=== PATIENT | male | born 1965 | race Caucasian/White ===

== ENCOUNTER 2020-10-06 12:38 | Inpatient (IN) | payer BC, OTHER ==
[2020-10-06 13:35] LABS: Basophils % (A) 0 %; Eosinophils # (A) 0.2 k/uL (0-0.7); Eosinophils % (A) 2 %; HGB 15.7 gm/dL (13.0-17.5); Lymphocytes # (A) 1.6 k/uL (1.0-4.8); Lymphocytes % (A) 20 %; MCHC 35.6 g/dL (31.0-37.0); MCV 92.8 fL (80.0-100.0); Mean Platelet Volume 7.2; Monocytes # (A) 0.3 k/uL (0-1.0); Monocytes % (A) 4 %; Neutrophils % (A) 73 %; Platelet Count 277 k/uL (150-450); RBC 4.74 m/uL (4.30-5.90); RDW 13.1 % (11.5-15.5); WBC 8.1 k/uL (3.8-10.6)
--- NOTE | 2020-10-06 13:36 | ED ---
Chest Pain HPI - General Chief Complaint: Chest Pain Stated Complaint: pain between shoulder blades Source: patient Mode of arrival: ambulatory Limitations: no limitations - History of Present Illness Initial Comments: 55-year-old male with no reported past medical history who presents emergency room with reported back pain. Patient reports to an intrascapular back pain with associated nausea and diaphoresis. This is the second episode of the patient has had this week. Reports that it occurs with exertion. Makes him feel short of breath. Denies any vomiting. No pain reproduced upon palpation. Patient took an aspirin last night which seemed to help his symptoms. He denies any fevers chills or cough. No history of DVT or PE. No calf pain or swelling. 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 Patient is not any blood thinners. No history of coronary disease. Denies history of stress test or echo. No fevers, chills or cough. No other alleviating, presentation modifying factors - Related Data Home Medications Medication Instructions Recorded Confirmed No Known Home Medications 10/06/20 10/06/20 Allergies Allergy/AdvReac Type Severity Reaction Status Date / Time latex Allergy Unknown Rash/Hives Verified 10/06/20 14:36 Review of Systems ROS Statement: Those systems with pertinent positive or pertinent negative responses have been documented in the HPI. ROS Other: All systems not noted in ROS Statement are negative. EKG Findings - EKG Comments: EKG Findings:: EKG demonstrates normal sinus rhythm with a ventricular rate of 75. Pr interval 160. QRS 88. QTC of 419. Q wave in lead 3. No acute ST segment elevations or depressions Past Medical History Past Medical History: Sleep Apnea/CPAP/BIPAP Additional Past Medical History / Comment(s): C-PAP MACHINE, possible diverticulosis History of Any Multi-Drug Resistant Organisms: None Reported Additional Past Surgical History / Comment(s): COLONOSCOPY Past Anesthesia/Blood Transfusion Reactions: No Reported Reaction, Motion Sickness Past Psychological History: No Psychological Hx Reported Smoking Status: Never smoker Past Alcohol Use History: Occasional Past Drug Use History: None Reported - Past Family History Father Family Medical History: Cancer Additional Family Medical History / Comment(s): BLADDER CA General Exam Limitations: no limitations General appearance: alert, in no apparent distress Head exam: Present: atraumatic, normocephalic, normal inspection Eye exam: Present: normal appearance, PERRL, EOMI. Absent: scleral icterus, conjunctival injection, periorbital swelling ENT exam: Present: normal exam, mucous membranes moist Neck exam: Present: normal inspection. Absent: tenderness, meningismus, lymphadenopathy Respiratory exam: Present: normal lung sounds bilaterally. Absent: respiratory distress, wheezes, rales, rhonchi, stridor Cardiovascular Exam: Present: regular rate, normal rhythm, normal heart sounds. Absent: systolic murmur, diastolic murmur, rubs, gallop, clicks GI/Abdominal exam: Present: soft, normal bowel sounds. Absent: distended, tenderness, guarding, rebound, rigid Extremities exam: Present: normal inspection, full ROM, normal capillary refill. Absent: tenderness, pedal edema, joint swelling, calf tenderness Back exam: Present: normal inspection Neurological exam: Present: alert, oriented X3, CN II-XII intact Psychiatric exam: Present: normal affect, normal mood Skin exam: Present: warm, dry, intact, normal color. Absent: rash Course Vital Signs 10/06/20 10/06/20 10/06/20 12:47 13:30 14:00 Temperature 98.6 F Pulse Rate 77 75 77 Respiratory 18 18 16 Rate Blood Pressure 135/91 127/82 123/82 O2 Sat by Pulse 99 99 98 Oximetry 10/06/20 10/06/20 10/06/20 14:30 15:00 16:00 Temperature Pulse Rate 74 71 76 Respiratory 161 H 18 18 Rate Blood Pressure 116/76 117/82 118/81 O2 Sat by Pulse 99 99 99 Oximetry Chest Pain MDM - MDM Upon arrival patient placed into room 21. There are history and physical exam is performed. EKG was performed which demonstrates no acute ST segment elevation. Laboratory studies are conducted which demonstrated a troponin of 0.41. A CT was performed to rule out dissection. CT is negative. Chest x-ray demonstrates no acute intrathoracic process. Patient is heparinized. Spoke with Dr. Posada in regards to the patient's symptoms. Patient will be made nothing by mouth after midnight. 325 mg chewable aspirin provided. Patient remained in stable condition awaiting a bed on the floor Disposition Clinical Impression: Chest pain, NSTEMI (non-ST elevated myocardial infarction) Disposition: ADMITTED IP TO THIS HOSP Condition: Serious Is patient prescribed a controlled substance at d/c from ED?: No Decision to Admit Reason: Admit from EC Decision Date: 10/06/20 Decision Time: 15:11
[2020-10-06 13:42] LABS: ALT 16 U/L (4-49); AST 28 U/L (17-59); African American GFR (CKD) >90 (>60 ml/min/1.73 sqM); Albumin 4.6 g/dL (3.5-5.0); Alkaline Phosphatase 82 U/L (38-126); Anion Gap 9 mmol/L; Blood Urea Nitrogen 14 mg/dL (9-20); Calcium 10.2 mg/dL (8.4-10.2); Carbon Dioxide 24 mmol/L (22-30); Chloride 108 mmol/L (98-107); Glucose 105 mg/dL (74-99); Lipase 90 U/L (23-300); Non-African American GFR(CKD) 90 (>60 ml/min/1.73 sqM); Sodium 141 mmol/L (137-145); Total Bilirubin 0.9 mg/dL (0.2-1.3); Total Protein 7.1 g/dL (6.3-8.2)
--- NOTE | 2020-10-06 13:44 | XR ---
EXAMINATION TYPE: XR chest 2V DATE OF EXAM: 10/06/2020 COMPARISON: NONE HISTORY: Chest pain TECHNIQUE: Frontal and lateral views of the chest are obtained. FINDINGS: There is no focal air space opacity, pleural effusion, or pneumothorax seen. The cardiac silhouette size is within normal limits. The osseous structures are intact. IMPRESSION: No acute cardiopulmonary process.
[2020-10-06 13:47] LABS: D-Dimer 0.23 mg/L FEU (<0.60); Partial Thromboplastin Time 25.7 sec (22.0-30.0); Prothrombin Time 10.4 sec (9.0-12.0)
[2020-10-06 13:59] LABS: Potassium 4.5 mmol/L (3.5-5.1)
[2020-10-06] MEDS ORDERED: ASPIRIN 81 MG PO STA (14:36)
[2020-10-06] MEDS ORDERED: HEPARIN SODIUM 1,000 UN/ML (10ML VL) IV PRN (14:36)
[2020-10-06] MEDS ORDERED: HEPARIN SODIUM 1,000 UN/ML (10ML VL) IV ONE (14:36)
[2020-10-06] MEDS ORDERED: RX INFO: IV CONTRAST WAS GIVEN 1 EACH MISC MISCELLANE PRN (14:47)
[2020-10-06] MEDS ORDERED: NALOXONE 0.4 MG/ML 1 ML VIAL IV PRN (15:11)
--- NOTE | 2020-10-06 15:55 | CT ---
EXAMINATION TYPE: CT chest w con DATE OF EXAM: 10/06/2020 COMPARISON: HISTORY: pain between shoulder blades CT DLP: 562.1 mGycm Automated exposure control for dose reduction was used. TECHNIQUE: CT scan of the chest is performed with IV Contrast, patient injected with 100 mL of Isovue 300. MIP Images are created on CT scanner and reviewed. 3D reconstructed images are created on an independent workstation and reviewed. FINDINGS: LUNGS: Nodular apical thickening on the left measuring 7 mm is nonspecific. MEDIASTINUM: There are no greater than 1 cm hilar or mediastinal lymph nodes. No pericardial effusi on is seen. Aorta of normal caliber with normal enhancement. Aortic root limited due to artifact. Co rrelate clinically. OTHER: There is a small hiatal hernia. There is a sclerosis of a mid right rib which is nonspecific could be correlated with bone scan. IMPRESSION: 1. No acute intrathoracic process.
[2020-10-06] MEDS: HEPARIN SOD,PORK IN 0.45% NACL 25,000 UNIT in 0.45% NACL 1 250ML.BAG IV SCH (16:22)
[2020-10-06] MEDS: ATORVASTATIN 80 MG TAB PO SCH (21:09)
[2020-10-06] MEDS: METOPROLOL TARTRATE 12.5 MG TAB PO SCH (21:12)
--- NOTE | 2020-10-06 22:54 | HP ---
HISTORY AND PHYSICAL DATE OF SERVICE: 10/06/2020 CHIEF COMPLAINT: Chest pain. HISTORY OF PRESENT ILLNESS: This 55-year-old gentleman with a past medical history of sleep apnea, history of diverticulosis, history of colonoscopy, being followed by Dr. Thomas in the outpatient setting was complaining of back pain. The patient felt pain in the interscapular area last night associated with nausea and profuse diaphoresis. The patient also had similar pain type of pain a few days ago on exertion, along with some shortness of breath and the patient actually ( ) Because of the pain last night, the patient came to [facility] and admitted for evaluation and treatment. There is no history of fever, rigors, chills, headache, loss consultations at this time. In the troponin is found to be 0.410 and 0.512 indicating acute hxw-OM-tadgywk-elevation myocardial infarction. The EKG in the ER showed nonspecific ST-T changes at this time and some small Q-waves in leads 3 and AVF. There is no history of fever, rigors, chills at this time. PAST MEDICAL HISTORY: History of sleep apnea, history of colonoscopy. MEDICATIONS: None. ALLERGIES: LATEX. FAMILY HISTORY: History of bladder cancer in the family. SOCIAL HISTORY: No history of smoking. No history alcohol. 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 CARDIOVASCULAR: As mentioned. RESPIRATORY: As mentioned. GI: No nausea. : No dysuria. NERVOUS SYSTEM: No numbness, weakness. ALLERGY: No asthma or hayfever. MUSCULOSKELETAL: As mentioned. HEMATOLOGY: Anemia. ENDOCRINE: No history of diabetes or hypothyroidism. CONSTITUTIONAL: Negative. RHEUMATOLOGY: Negative. PSYCHIATRIC: As mentioned. PHYSICAL EXAMINATION: Alert oriented pulse 76, blood pressure 119/81, respiration 18, temperature 99 and normal, pulse ox 98% on room air. HEART: S1, S2 muffled. RESPIRATORY SYSTEM: Breath sounds diminished at the bases. No rhonchi. No crackles. ABDOMEN: Soft, nontender. No mass palpable. LEGS: No edema, no swelling. NERVOUS SYSTEM: As mentioned earlier. Moves all 4 limbs. Nonfocal motor-sensory. LYMPHATICS: No lymph nodes. SKIN: No rash. JOINTS: No active deforming arthropathy. LABS: CBC within normal limits. Sodium 141, potassium 4.5. Troponin 0.410 and 0.512. COVID- 19 is negative. ASSESSMENT: 1. back pain, intrascapular pain, for evaluation possible acute tzh-SD-ypkwllw- elevation myocardial infarction. 2. Troponin 0.512. 3. History of sleep apnea. 4. History of diverticulosis. 5. History of colonoscopy. 6. Obesity with body mass 30.5. 7. FULL CODE. RECOMMENDATION AND DISCUSSION: This 55-year-old gentleman who presented with multiple complex medical issues, we will monitor the patient closely, continue the current medications. Angina protocol, acute coronary syndrome protocol. Otherwise, IV heparin. Cardiology consultation, possible cardiac cath per Cardiology. The prognosis guarded. Antiplatelet agents. Beta blockers. See orders for details. Guarded prognosis. Further recommendations to follow. Recommend Lipitor also. MMODL / IJN: [id number] / MTDD
[2020-10-07 08:13] LABS: Basophils % (A) 1 %; Eosinophils # (A) 0.1 k/uL (0-0.7); Eosinophils % (A) 1 %; HCT 43.3 % (39.0-53.0); HGB 15.2 gm/dL (13.0-17.5); Lymphocytes % (A) 29 %; MCH 32.9 pg (25.0-35.0); MCHC 35.1 g/dL (31.0-37.0); MCV 93.7 fL (80.0-100.0); Mean Platelet Volume 7.2; Monocytes # (A) 0.4 k/uL (0-1.0); Monocytes % (A) 5 %; Neutrophils # (A) 4.3 k/uL (1.3-7.7); Neutrophils % (A) 63 %; Platelet Count 240 k/uL (150-450); RBC 4.62 m/uL (4.30-5.90); WBC 6.8 k/uL (3.8-10.6)
[2020-10-07 08:23] LABS: African American GFR (CKD) >90 (>60 ml/min/1.73 sqM); Anion Gap 7 mmol/L; Blood Urea Nitrogen 14 mg/dL (9-20); Carbon Dioxide 24 mmol/L (22-30); Chloride 109 mmol/L (98-107); Glucose 101 mg/dL (74-99); Non-African American GFR(CKD) 88 (>60 ml/min/1.73 sqM); Partial Thromboplastin Time 44.6 sec (22.0-30.0); Potassium 4.4 mmol/L (3.5-5.1); Prothrombin Time 10.6 sec (9.0-12.0); Sodium 140 mmol/L (137-145)
--- NOTE | 2020-10-07 08:40 | P.CRDCN ---
History of Present Illness Consult date: 10/07/20 History of present illness: HISTORY OF PRESENT ILLNESS: This is a 55-year-old male with no significant past medical history. 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 We have been asked to see the patient in consultation for chest pain. Patient examined at the bedside. Patient states on Friday he was running to his car after work when he noticed he was feeling short of breath and had some pain in between his shoulder blades. He also reports feeling diaphoretic and nauseated. He denied having any chest pain. He states he sat in his car for approximately 5 or 10 minutes and the symptoms subsided. He reports yesterday after eating dinner he had similar symptoms. He states over the past week he has noticed he gets these symptoms when he is exerting himself and then when he sits down his symptoms will resolve shortly after resti ng. The patient states he had a stress test approximately 20 years ago which was negative to his knowledge. Patient states he has a family history of coronary artery disease and reports his mother had multiple heart attacks, the first one being before the age of 60. EKG reveals sinus mechanism with no signs of acute ischemia Chest xray negative for acute process Laboratory data: WBC 6.8. Hemoglobin 15.2. Platelet count 240. D-dimer 0.23. Sodium 140. Potassium 4.4. BUN 14. Creatinine 0.98. Magnesium 2.0. Troponin 0.410. 0.512. 0.644. BNP 810. Current home cardiac medications include none REVIEW OF SYSTEMS: At the time of my exam: CONSTITUTIONAL: Denies fever or chills. HEENT: Denies blurred vision, vision changes, or eye pain. Denies hemoptysis CARDIOVASCULAR: Denies chest pain. Denies orthopnea. Denies PND. Denies palpitations RESPIRATORY: Denies shortness of breath. GASTROINTESTINAL: Denies abdominal pain. Denies nausea or vomiting. HEMATOLOGIC: Denies bleeding disorders. GENITOURINARY: Denies any blood in urine. SKIN: Denies pruitis. Denies rash. PHYSICAL EXAM: VITAL SIGNS: Reviewed. GENERAL: Well-developed in no acute distress. HEENT: Head is normocephalic. Pupils are equal, round. Sclerae anicteric. Mucous membranes of the mouth are moist. Neck supple. No JVD or thyromegaly LUNGS: Respirations even and unlabored. Lungs essentially clear to auscultation bilaterally. HEART: Regular rate and rhythm. S1 and S2 heard. ABDOMEN: Soft. Nondistended. Nontender. EXTREMITIES: Normal range of motion. No clubbing or cyanosis. Peripheral pulses intact. No lower extremity edema NEUROLOGIC: Awake and alert. Oriented x 3. ASSESSMENT: Non-STEMI Exertional dyspnea Family history of coronary artery disease PLAN: Obtain 2-D echo to assess cardiac structure and function Continue IV heparin Continue Lipitor. Obtain lipid panel Add aspirin 81 mg daily Possible cardiac cath today. Decision will be made when patient is evaluated by Dr. Gerard today Further recommendations pending patient course Nurse practitioner note has been reviewed by physician. Signing provider agrees with the documented findings, assessment, and plan of care. Past Medical History Past Medical History: Sleep Apnea/CPAP/BIPAP Additional Past Medical History / Comment(s): C-PAP MACHINE, possible diverticulosis History of Any Multi-Drug Resistant Organisms: None Reported Additional Past Surgical History / Comment(s): COLONOSCOPY Past Anesthesia/Blood Transfusion Reactions: No Reported Reaction, Motion Sickness Past Psychological History: No Psychological Hx Reported Smoking Status: Never smoker Past Alcohol Use History: Occasional Past Drug Use History: None Reported - Past Family History Father Family Medical History: Cancer Additional Family Medical History / Comment(s): BLADDER CA Medications and Allergies Home Medications Medication Instructions Recorded Confirmed Type No Known Home Medications 10/06/20 10/06/20 History Allergies Allergy/AdvReac Type Severity Reaction Status Date / Time latex Allergy Unknown Rash/Hives Verified 10/06/20 14:36 Physical Exam Vitals: Vital Signs Temp Pulse Pulse Resp BP BP Pulse Ox 10/07/20 04:00 86 18 108/70 96 10/07/20 00:00 72 18 119/69 99 10/06/20 21:40 98.2 F 62 18 139/88 97 10/06/20 21:17 97.8 F 91 16 131/84 98 10/06/20 20:10 97.8 F 89 16 129/83 98 10/06/20 16:00 76 18 118/81 99 10/06/20 15:00 71 18 117/82 99 10/06/20 14:30 74 161 H 116/76 99 10/06/20 14:00 77 16 123/82 98 10/06/20 13:30 75 18 127/82 99 10/06/20 12:47 98.6 F 77 18 135/91 99 Intake and Output 10/06/20 10/07/20 10/07/20 22:59 06:59 14:59 Intake Total 527.667 0 Balance 527.667 0 Intake: Intake, IV Titration 47.667 Amount Heparin Sod,Pork in 0.45% 47.667 NaCl 25,000 unit In 0.45 % NaCl 1 250ml.bag @ 10. 702 UNITS/KG/HR 10 mls/hr IV .Q24H [facility] Rx#: [id number] Oral 480 0 Other: Voiding Method Toilet Toilet # Voids 2 Weight 93.44 kg 93 kg Results 10/07/20 07:46 10/07/20 07:46 Cardiac Enzymes 10/06/20 10/06/20 10/06/20 Range/Units 13:11 13:11 16:50 AST 28 (17-59) U/L Troponin I 0.410 H* 0.512 H* (0.000-0.034) ng/mL 10/06/20 Range/Units 20:30 AST (17-59) U/L Troponin I 0.644 H* (0.000-0.034) ng/mL Coagulation 10/06/20 10/06/20 10/07/20 Range/Units 13:11 20:30 07:46 PT 10.4 10.6 (9.0-12.0) sec APTT 25.7 41.6 H 44.6 H (22.0-30.0) sec CBC 10/06/20 10/07/20 Range/Units 13:11 07:46 WBC 8.1 6.8 (3.8-10.6) k/uL RBC 4.74 4.62 (4.30-5.90) m/uL Hgb 15.7 15.2 (13.0-17.5) gm/dL Hct 44.0 43.3 (39.0-53.0) % Plt Count 277 240 (150-450) k/uL Comprehensive Metabolic Panel 10/06/20 10/07/20 Range/Units 13:11 07:46 Sodium 141 140 (137-145) mmol/L Potassium 4.5 4.4 (3.5-5.1) mmol/L Chloride 108 H 109 H (98-107) mmol/L Carbon Dioxide 24 24 (22-30) mmol/L BUN 14 14 (9-20) mg/dL Creatinine 0.96 0.98 (0.66-1.25) mg/dL Glucose 105 H 101 H (74-99) mg/dL Calcium 10.2 10.0 (8.4-10.2) mg/dL AST 28 (17-59) U/L ALT 16 (4-49) U/L Alkaline Phosphatase 82 (38-126) U/L Total Protein 7.1 (6.3-8.2) g/dL Albumin 4.6 (3.5-5.0) g/dL Current Medications Generic Name Dose Route Start Last Admin Trade Name Freq PRN Reason Stop Dose Admin Atorvastatin Calcium 80 mg 10/06/20 20:00 10/06/20 21:09 Atorvastatin 80 Mg Tab PO 80 mg DAILY DARYL Administration Heparin Sodium (Porcine) 0 unit 10/06/20 14:36 10/06/20 21:06 Heparin Sodium 1,000 Un/Ml (10ml Vl) IV 2,336 unit PER PROTOCOL PRN Administration Low PTT Protocol Heparin Sodium/Sodium Chloride 250 mls @ 10 mls/hr 10/06/20 14:45 10/06/20 21:08 25,000 unit/ Sodium Chloride IV 12.84 units/kg/hr .Q24H DARYL 12 mls/hr Titration Protocol 10.702 UNITS/KG/HR Metoprolol Tartrate 12.5 mg 10/06/20 21:00 10/06/20 21:12 Metoprolol Tartrate 12.5 Mg Tab PO 12.5 mg BID DARYL Administration Miscellaneous Information 1 each 10/06/20 14:47 Rx Info: Iv Contrast Was Given 1 Each Misc MISCELLANE 10/08/20 14:47 DAILY PRN Per Protocol Naloxone HCl 0.2 mg 10/06/20 15:11 Naloxone 0.4 Mg/Ml 1 Ml Vial IV Q2M PRN Opioid Reversal Intake and Output 10/06/20 10/07/20 10/07/20 22:59 06:59 14:59 Intake Total 527.667 0 Balance 527.667 0 Intake: Intake, IV Titration 47.667 Amount Heparin Sod,Pork in 0.45% 47.667 NaCl 25,000 unit In 0.45 % NaCl 1 250ml.bag @ 10. 702 UNITS/KG/HR 10 mls/hr IV .Q24H [facility] Rx#: [id number] Oral 480 0 Other: Voiding Method Toilet Toilet # Voids 2 Weight 93.44 kg 93 kg 10/07/20 07:46 10/07/20 07:46
[2020-10-07] MEDS ORDERED: ASPIRIN 325 MG TAB PO STA (09:38)
[2020-10-07] MEDS ORDERED: SODIUM CHLORIDE 0.9% 1,000 ML in EMPTY BAG 1 BAG IV ONE (09:38)
[2020-10-07] MEDS ORDERED: NITROGLYCERIN SL TABS 0.4 MG TAB SUBLINGUAL PRN ×2 (09:38→11:57)
[2020-10-07] MEDS ORDERED: ALPRAZolam 0.25 MG TAB PO PRN (09:38)
[2020-10-07] MEDS ORDERED: ALPRAZolam 0.5 MG TAB PO PRN (09:38)
[2020-10-07] MEDS ORDERED: ATORVASTATIN 80 MG TAB PO STA (09:38)
[2020-10-07] MEDS: ATORVASTATIN 80 MG TAB PO SCH (10:06)
[2020-10-07] MEDS: ASPIRIN 81 MG PO SCH (10:06)
[2020-10-07] MEDS: METOPROLOL TARTRATE 12.5 MG TAB PO SCH ×2 (10:24→20:17)
[2020-10-07] MEDS ORDERED: VERAPAMIL 2.5 MG/ML 2 ML AMP ONE (10:35)
[2020-10-07] MEDS ORDERED: LIDOCAINE 1% INJ 10MG/ML (20 ML MDV) ONE (10:35)
[2020-10-07] MEDS ORDERED: IV FLUID CONTINUATION 900 ML IV ONE (10:51)
[2020-10-07] MEDS: MIDAZOLAM 2 MG/2 ML VIAL IV ONE ×2 (11:07→11:32)
[2020-10-07] MEDS: fentaNYL (PF) 50 MCG/ML 2 ML AMP IV ONE ×2 (11:10→11:34)
[2020-10-07] MEDS ORDERED: fentaNYL (PF) 50 MCG/ML 2 ML AMP ONE (11:11)
[2020-10-07] MEDS ORDERED: MIDAZOLAM 2 MG/2 ML VIAL IV ONE (11:11)
[2020-10-07] MEDS ORDERED: VERAPAMIL SYRINGE (5 MG/10 ML) INTRAARTER ONE ×2 (11:14→11:16)
[2020-10-07] MEDS ORDERED: LIDOCAINE 1% INJ 10MG/ML (20 ML MDV) SQ ONE (11:14)
[2020-10-07] MEDS ORDERED: HEPARIN SODIUM 1,000 UN/ML (10ML VL) ONE (11:14)
[2020-10-07] MEDS ORDERED: fentaNYL (PF) 50 MCG/ML 2 ML AMP IV ONE (11:14)
[2020-10-07] MEDS ORDERED: PRASUGREL 10 MG TAB ONE (11:25)
[2020-10-07] MEDS ORDERED: PRASUGREL 10 MG TAB PO ONE (11:29)
[2020-10-07] MEDS: NITROGLYCERIN 1000MCG/10ML SYRINGE INTRACORON ONE ×2 (11:44→11:45)
[2020-10-07] MEDS ORDERED: IOPAMIDOL-370 125ML BTL INJ ONE (11:48)
[2020-10-07] MEDS ORDERED: RX INFO: IV CONTRAST WAS GIVEN 1 EACH MISC MISCELLANE PRN (11:57)
[2020-10-07] MEDS ORDERED: ZOLPIDEM 5 MG TAB PO PRN (11:57)
[2020-10-07] MEDS ORDERED: ATROPINE SULFATE 0.1 MG/ML 10ML SYRINGE IV PRN (11:57)
[2020-10-07] MEDS ORDERED: MAG HYDROX/AL HYDROX/SIMETH 30 ML CUP PO PRN (11:57)
[2020-10-07] MEDS ORDERED: SODIUM CHLORIDE 0.9% 1,000 ML IV SCH (12:00)
[2020-10-07 13:07] VITALS: BMI 30.2
--- NOTE | 2020-10-07 13:07 | CC ---
CARDIAC CATHETERIZATION REPORT DATE OF SERVICE: 10/07/2020 PERFORMING PHYSICIAN: Misbah Gerard MD. PROCEDURE PERFORMED: 1. Selective right and left coronary angiogram. 2. Left heart catheterization. 3. Successful stenting of the mid left anterior descending artery using 2.5 x 15 mm Xience drug-eluting stent with an excellent angiographic result and reduction of stenosis from 90% to 0%. 4. Balloon angioplasty of the second diagonal branch of the left anterior descending artery using 2.5 x 12 mm balloon. INDICATION: Acute nep-KX-sdiopdzmf myocardial infarction. COMPLICATION: None. LEVEL OF SEDATION: Moderate with sedation length of 43 minutes. PROCEDURE DESCRIPTION: After obtaining informed consent, the patient was brought to the cardiac supervisor labor gang. The right radial artery was cannulated using micropuncture technique, the micropuncture wire passed easily. Then I placed a 6-Khmer sheath at the right radial artery. Subsequently, I gave the patient 2 mg of verapamil IA and 10,000 units of heparin IV with continuous ACT monitoring throughout the procedure. Subsequently I did selective right and left coronary angiogram with JR4 and JL3.5 catheters. Left heart catheterization was performed using 5-Khmer pigtail catheter. After that I did intervene on the LAD. Please see a separate paragraph for that. Selective coronary angiogram. 1. The RCA is a moderate caliber vessel and it is a dominant vessel. The RCA has mild to moderate diffuse disease. 2. The left main is angiographically normal. Bifurcates into left circumflex and left anterior descending artery. 3. The left circumflex is a large caliber vessel. It is a codominant vessel. The left circumflex appeared to be angiographically normal. In the midportion gives rise into a large OM branch which seems to be normal and distally bifurcates into PDA and PLV branches, both appeared to be angiographically normal. 4. The LAD: The proximal LAD has mild disease only and gives rise into first diagonal branch which has mild disease only. The mid LAD has a thrombotic lesion that appeared to be in the range of 90% to 95% by the bifurcation of the second diagonal branch which is a large caliber vessel involved in the lesion which is complex. The distal LAD appeared to be angiographically normal. HEMODYNAMICS: The LVEDP was only 2-4 mmHg without significant gradient across aortic valve. PCI OF THE LAD AND DIAGONAL: Anticoagulation was continued using the heparin. Subsequently I did engage the left main using JL3.5 guiding catheter. I did wire the LAD using a Whisper wire and diagonal using a run-through wire. The balloon angioplasty of both was performed using 2.5 x 12 mm balloon. Subsequently, I advanced 2.5 x 15 mm Xience stent over the LAD wire, where the stent was positioned under fluoroscopy guidance and deployed under 10 atmospheres for 20 seconds with the following angiogram showing excellent angiographic results for the LAD and there was pinch on the diagonal but has ZAHIDA-3 flow. CONCLUSION: 1. Acute xbt-IS-prcahqplp myocardial infarction. 2. Thrombotic lesion involving the mid LAD by the bifurcation of a large diagonal branch. The lesion is complex. 3. Successful stenting of the mid LAD was performed using 2.5 mm x 15 mm Xience stent with adjunctive balloon angioplasty of the second diagonal branch. 4. Low left ventricular end-diastolic pressure. POSTPROCEDURE MANAGEMENT: 1. Continue IV hydration. 2. Dual anti-platelet therapy. 3. Aggressive cholesterol control. 4. Risk factor modifications. 5. Follow up with the patient. MMAMYL / IJN: [id number] /
[2020-10-07] MEDS: HEPARIN SOD,PORK IN 0.45% NACL 25,000 UNIT in 0.45% NACL 1 250ML.BAG IV SCH (20:17)
--- NOTE | 2020-10-07 22:17 | PN ---
PROGRESS NOTE DATE OF SERVICE: 10/07/2020 Gentleman admitted with back pain, as well as acute zeb-CY-rxymlpq-elevation myocardial infarct, underwent cardiac catheterization by Dr. Gerard. The patient underwent stenting of the LAD, as well as balloon angioplasty 2nd diagonal branch by Dr. Gerard. No chest pain. No palpitations. No fever. PHYSICAL EXAMINATION: Alert, attentive. Pulse 85, blood pressure 120/60, respirations 16, temperature 98.4, pulse ox 97% on room air. HEENT: Normal conjunctivae. HEART: S1, S2 muffled. RESPIRATORY SYSTEM: Breath sounds diminished at the bases. No rhonchi. No crackles. ABDOMEN: Soft. LEGS: No edema. No swelling. LABS: CBC within normal limits and otherwise D-dimer is noted. ASSESSMENT: 1. Acute clu-KS-dqhpbwx-elevation myocardial infarction status post cardiac catheterization and stenting of the LAD, as well as balloon angioplasty of the 2nd diagonal branch. 2. Troponin 0.512. 3. History of sleep apnea. 4. History of diverticulosis. 5. History of colonoscopy. 6. Obesity with body mass index 30.5. 7. FULL CODE. RECOMMENDATIONS AND DISCUSSION: I recommend to continue current management and treatment. Otherwise, at this time I recommend to continue the beta blockers, Lipitor, antiplatelet agents. Guarded prognosis because of multiple complex medical issues. Further recommendations to follow. Closely follow with Cardiology. MMODL / IJN: [id number] /
[2020-10-08] MEDS ORDERED: HEPARIN SODIUM,PORCINE 2,500 UNIT in SODIUM CHLORIDE 0.9% 250 ML IRRIGATION PRN (07:00)
[2020-10-08] MEDS ORDERED: HEPARIN SODIUM,PORCINE 10,000 UNIT in SODIUM CHLORIDE 0.9% 1,000 ML IRRIGATION PRN (07:00)
[2020-10-08 08:12] VITALS: RESP 16; TEMP 98.3
[2020-10-08] MEDS: ASPIRIN 81 MG PO SCH (08:14)
[2020-10-08] MEDS: METOPROLOL TARTRATE 12.5 MG TAB PO SCH (08:14)
[2020-10-08] MEDS: ATORVASTATIN 80 MG TAB PO SCH (08:14)
[2020-10-08] MEDS ORDERED: CLOPIDOGREL 75 MG TAB PO SCH (09:00)
--- NOTE | 2020-10-08 10:20 | P.PN ---
Subjective Progress Note Date: 10/08/20 HISTORY OF PRESENT ILLNESS: This is a 55-year-old male with no significant past medical history. 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 We have been asked to see the patient in consultation for chest pain. Patient examined at the bedside. Patient states on Friday he was running to his car after work when he noticed he was feeling short of breath and had some pain in between his shoulder blades. He also reports feeling diaphoretic and nauseated. He denied having any chest pain. He states he sat in his car for approximately 5 or 10 minutes and the symptoms subsided. He reports yesterday after eating dinner he had similar symptoms. He states over the past week he has noticed he gets these symptoms when he is exerting himself and then when he sits down his symptoms will resolve shortly after resting. The patient states he had a stress test approximately 20 years ago which was negative to his knowledge. Patient states he has a family history of coronary artery disease and reports his mother had multiple heart attacks, the first one being before the age of 60. EKG reveals sinus mechanism with no signs of acute ischemia Chest xray negative for acute process Laboratory data: WBC 6.8. Hemoglobin 15.2. Platelet count 240. D-dimer 0.23. Sodium 140. Potassium 4.4. BUN 14. Creatinine 0.98. Magnesium 2.0. Troponin 0.410. 0.512. 0.644. BNP 810. Current home cardiac medications include none 10/08/2020 Patient is status post cardiac catheterization with Dr. Posada yesterday with stenting of the mid LAD and balloon angioplasty of the second diagonal branch of the LAD. Patient examined this morning at the bedside. Patient denies chest pain or pressure. He denies shortness of breath. Blood pressure 123/68. Telemetry monitoring reveals sinus mechanism with a heart rate in the 80s. He is on room air with oxygen saturations greater than 92%. PHYSICAL EXAM: VITAL SIGNS: Reviewed. GENERAL: Well-developed in no acute distress. HEENT: Head is normocephalic. Pupils are equal, round. Sclerae anicteric. Mucous membranes of the mouth are moist. Neck supple. No JVD or thyromegaly LUNGS: Respirations even and unlabored. Lungs essentially clear to auscultation bilaterally. HEART: Regular rate and rhythm. S1 and S2 heard. ABDOMEN: Soft. Nondistended. Nontender. EXTREMITIES: Normal range of motion. No clubbing or cyanosis. Peripheral pulses intact. No lower extremity edema. Right radial cath site with pulse present. NEUROLOGIC: Awake and alert. Oriented x 3. ASSESSMENT: Non-STEMI Exertional dyspnea Family history of coronary artery disease PLAN: 2-D echo ordered. Await results Continue dual antiplatelet therapy with aspirin and Plavix Continue Lipitor and Metoprolol Anticipate discharge home this afternoon after patient is evaluated by Dr. Gerard Nurse practitioner note has been reviewed by physician. Signing provider agrees with the documented findings, assessment, and plan of care. Objective - Vital Signs Vital signs: Vital Signs Temp 98.3 F 10/08/20 08:00 Pulse 84 10/08/20 08:00 Resp 16 10/08/20 08:00 BP 123/68 10/08/20 08:00 Pulse Ox 96 10/08/20 08:00 Intake & Output 10/07/20 10/08/20 10/08/20 18:59 06:59 18:59 Intake Total 890.8 480 236 Balance 890.8 480 236 Weight 93 kg 91.8 kg Intake: IV 250 Intake, IV Titration 160.8 Amount Heparin Sod,Pork in 0.45% 160.8 NaCl 25,000 unit In 0.45 % NaCl 1 250ml.bag @ 10. 702 UNITS/KG/HR 10 mls/hr IV .Q24H [facility] Rx#: [id number] Oral 480 480 236 Other: Voiding Method Toilet Toilet # Voids 2 1 - Labs CBC & Chem 7: 10/07/20 07:46 10/08/20 07:17
[2020-10-08 11:53] VITALS: BP 118/73; PULSE 81
--- NOTE | 2020-10-08 13:00 | ECHOF ---
Referral Reason:LV function, NSTEMI MEASUREMENTS -------- HEIGHT: 175.3 cm WEIGHT: 93.0 kg BP: 119/69 IVSd: 1.3 cm (0.6 - 1.1) LVIDd: 3.7 cm (3.9 - 5.3) LVPWd: 1.6 cm (0.6 - 1.1) IVSs: 1.5 cm LVIDs: 2.7 cm LVPWs: 1.4 cm LAESV Index (A-L): 7.93 ml/m Ao Diam: 4.0 cm (2.0 - 3.7) AV Cusp: 2.6 cm (1.5 - 2.6) MV E Juanpablo: 0.64 m/s MV DecT: 166 ms MV A Juanpablo: 0.65 m/s MV E/A Ratio: 0.99 FINDINGS -------- Sinus rhythm. This was a technically difficult study with suboptimal views. The left ventricular size is normal. There is mild concentric left ventricular hypertrophy. Overa ll left ventricular systolic function is low-normal with, an EF between 50 - 55 %. The right ventricle is normal in size. Normal LA size by volume 22+/-6 ml/m2. The right atrial size is normal. 5.0mg of Lumason was utilized for enhancement of images Interatrial and interventricular septum intact. There is no evidence of aortic regurgitation. There is no evidence of aortic stenosis. No mitral regurgitation. Trace tricuspid regurgitation present. There is no evidence of pulmonary hypertension. The right ventricular systolic pressure, as measured by Doppler, is {RVSP}. There is no pulmonic regurgitation present. The aortic root size is normal. Normal inferior vena cava with normal inspiratory collapse consistent with estimated right atrial pre ssure of 5 mmHg. There is no pericardial effusion. CONCLUSIONS -------- 1. The left ventricular size is normal. 2. There is mild concentric left ventricular hypertrophy. 3. Overall left ventricular systolic function is low-normal with, an EF between 50 - 55 %. 4. Trace tricuspid regurgitation present. HOSPICE LIAISON: Felicia Abraham, [facility]
--- NOTE | 2020-10-09 06:15 | DS ---
DISCHARGE SUMMARY DATE OF SERVICE: 10/08/2020 FINAL DIAGNOSIS: 1. Acute qaw-RP-nugwqju-elevation myocardial infarction status post cardiac catheterization and stenting of the LAD as well as balloon angioplasty of the second diagonal plan. 2. Troponin 0.512. 3. History of sleep apnea. 4. History of diverticulosis. 5. History of colonoscopy. 6. Obesity with body mass index of 30.5. 7. FULL CODE. DISCHARGE DISPOSITION: Patient will be discharged in stable condition with guarded prognosis. HISTORY OF PRESENT ILLNESS: This 55-year-old gentleman was admitted with back pain between the scapula. The patient was found to have acute jhe-OB-mpozoim-elevation myocardial infarction. Patient underwent cardiac catheterization and stenting of the LAD and also balloon angioplasty of second diagonal branch by Dr. Gerard. Patient improved significantly. PHYSICAL EXAMINATION: On exam, vitals are stable. Cardiovascular S1 and S2. Abdomen soft. Nervous system: No focal deficits. DISCHARGE INSTRUCTIONS: 1. Discharge diet is cardiac diet. 2. Activity limited until followup. 3. Follow up Dr. Thomas in 1-2 days. 4. Follow up with Dr. Gerard as recommended. MEDICATIONS: 1. Ecotrin 81 mg p.o. daily. 2. Lipitor 80 mg p.o. daily. 3. Lopressor 12.5 mg p.o. b.i.d. 4. Nitroglycerin 0.4 sublingually p.r.n. 5. Plavix 75 mg p.o. daily. Once again the patient will be discharged in stable condition with guarded prognosis. MMODL / IJN: [id number] /
== END 2020-10-08 14:00 | disposition home or self-care (01) | DRG 247 ==
LOC: EC 12:38 → 3SCARD 15:11
PROVIDERS: ADMIT Hospitalist; ATTEND Hospitalist
PROC: B2111ZZ Fluoroscopy of Multiple Coronary Arteries using Low Osmolar Contrast (ICD-10-PCS; 2020-10-07)
PROC: 027134Z Dilation of Coronary Artery, Two Arteries with Drug-eluting Intraluminal Device, Percutaneous Approach (ICD-10-PCS; principal; 2020-10-07 11:00)
PROC: 4A023N7 Measurement of Cardiac Sampling and Pressure, Left Heart, Percutaneous Approach (ICD-10-PCS; 2020-10-07 11:00)
DX: I21.4 Non-ST elevation (NSTEMI) myocardial infarction (principal); G47.30 Sleep apnea, unspecified; K57.90 Diverticulosis of intestine, part unspecified, without perforation or abscess without bleeding; E66.9 Obesity, unspecified; Z80.52 Family history of malignant neoplasm of bladder; Z68.30 Body mass index [BMI] 30.0-30.9, adult; Z82.49 Family history of ischemic heart disease and other diseases of the circulatory system; Z20.822 Contact with and (suspected) exposure to COVID-19
CPT/HCPCS: 36415; 71046; 71260; 80048; 80053; 82565; 83690; 83735; 83880; 84484; 85025; 85379; 85610; 85730; 87635; 93005; 93306; 93458; 99285

== ENCOUNTER → 2021-03-21 | Outpatient (CLI) | payer BC ==
[2021-03-21 16:00] LABS: HDL Cholesterol 34.2 mg/dL (40.00-60.00); Triglycerides 48.9 mg/dL (0.00-149.00)
[2021-03-21 16:32] LABS: Chol/HDL Ratio 2.56 Ratio; LDL Cholesterol,Direct Reflex 43.2 mg/dL (0.00-129.00)
== END | disposition home or self-care (01) ==
LOC: LABWHC1 07:32
PROVIDERS: ATTEND Internal Medicine Interventional Cardiology
DX: E78.2 Mixed hyperlipidemia (principal)
CPT/HCPCS: 36415; 80061; 83721; 84450; 84460

== ENCOUNTER → 2022-04-12 | Outpatient (CLI) | payer BC | END | disposition home or self-care (01) | LOC: LABWHC1 09:24 | PROVIDERS: ATTEND Urology | DX: R97.20 Elevated prostate specific antigen [PSA] (principal) | CPT/HCPCS: 36415; 84153 ==

== ENCOUNTER → 2022-10-07 | Outpatient (CLI) | payer BC ==
[2022-10-07 16:12] LABS: ALT 31 U/L (10-49); AST 19 U/L (14-35); Chol/HDL Ratio 2.29 Ratio; LDL Cholesterol,Calculated 33.9 mg/dL (0.0-131.0); VLDL Calculation 10.02 mg/dL (5.00-40.00)
== END | disposition home or self-care (01) ==
LOC: LABWHC1 10:36
PROVIDERS: ATTEND Internal Medicine Interventional Cardiology
DX: E78.2 Mixed hyperlipidemia (principal); R97.20 Elevated prostate specific antigen [PSA]
CPT/HCPCS: 36415; 80061; 84153; 84450; 84460

== ENCOUNTER 2024-04-06 13:20 | Observation (INO) | payer BC ==
--- NOTE | 2024-04-06 13:56 | ED ---
General Adult HPI - General Chief complaint: Chest Pain Stated complaint: L Shoulder pain,Chest pain Time Seen by Provider: 04/06/24 13:25 Source: patient, RN notes reviewed, old records reviewed Mode of arrival: wheelchair Limitations: no limitations - History of Present Illness Initial comments: This is a 59-year-old male who presents to the emergency department stating he started having some back pain behind his scapula on the left and it eventually radiated around to the front today and he said it was somewhat reminiscent of when he had back pain in the past and he had a heart attack and a stent placed. Patient states the pain does seem like it may be related to movement but he cannot be sure. Patient denies shortness of breath or difficulty breathing. Patient denies any diaphoretic episode. Patient denies any nausea or vomiting. Patient states that this does somewhat feel like the pain he had when he had a heart attack. Patient denies any fever chills or cough. Patient denies any abdominal pain. Patient denies a headache patient has numbness weakness. Patient states he does not have diabetes high blood pressure or high chol esterol. Patient states he has a strong family history with his mother having heart disease at a very young age. Patient states he does not smoke. - Related Data Home Medications Medication Instructions Recorded Confirmed Aspirin 81 mg PO DAILY@1030 04/06/24 04/06/24 Metoprolol Tartrate [Lopressor] 12.5 mg PO BID@1030,2230 04/06/24 04/06/24 Rosuvastatin Calcium [Crestor] 5 mg PO DAILY@1030 04/06/24 04/06/24 Allergies Allergy/AdvReac Type Severity Reaction Status Date / Time latex Allergy Unknown Rash/Hives Verified 04/06/24 13:46 Review of Systems ROS Statement: Those systems with pertinent positive or pertinent negative responses have been documented in the HPI. ROS Other: All systems not noted in ROS Statement are negative. 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, possible diverticulosis History of Any Multi-Drug Resistant Organisms: None Reported Past Surgical History: Heart Catheterization With Stent Additional Past Surgical History / Comment(s): COLONOSCOPY Past Anesthesia/Blood Transfusion Reactions: No Reported Reaction, Motion Sickness Past Psychological History: No Psychological Hx Reported Smoking Status: Never smoker Past Alcohol Use History: Occasional Past Drug Use History: None Reported - Past Family History Father Family Medical History: Cancer Additional Family Medical History / Comment(s): BLADDER CA General Exam - General Exam Comments Initial Comments: GENERAL: Patient is well-developed and well-nourished. Patient is nontoxic and well- hydrated and is in no acute distress. ENT: Neck is soft and supple. No significant lymphadenopathy is noted. Oropharynx is clear. Moist mucous membranes. Neck has full range of motion without eliciting any pain. EYES: The sclera were anicteric and conjunctiva were pink and moist. Extraocular movements were intact and pupils were equal round and reactive to light. Eyelids were unremarkable. PULMONARY: Unlabored respirations. Good breath sounds bilaterally. No audible rales rhonchi or wheezing was noted. CARDIOVASCULAR: There is a regular rate and rhythm without any murmurs gallops or rubs. Patient is not reproducible ABDOMEN: Soft and nontender with normal bowel sounds. SKIN: Skin is clear with no lesions or rashes and otherwise unremarkable. NEUROLOGIC: Patient is alert and oriented x3. Cranial nerves II through XII are grossly intact. Motor and sensory are also intact. Normal speech, volume and content. Symmetrical smile. MUSCULOSKELETAL: Normal extremities with adequate strength and full range of motion. No lower extremity swelling or edema. No calf tenderness. LYMPHATICS: No significant lymphadenopathy is noted PSYCHIATRIC: Normal psychiatric evaluation. Limitations: no limitations Course Vital Signs 04/06/24 13:22 Temperature 98.3 F Pulse Rate 93 Respiratory 18 Rate Blood Pressure 133/86 O2 Sat by Pulse 99 Oximetry Medical Decision Making - Medical Decision Making EKG is interpreted by myself. EKG shows sinus rhythm at 79 bpm OK interval 156 QRS is 88 QT interval is 373 QTc is 408. Patient's EKG shows no ST segment elevation or depression. Was pt. sent in by a medical professional or institution (, PA, PASTING INSPECTOR, urgent care, hospital, or [facility]...) When possible be specific @ -No Did you speak to anyone other than the patient for history (EMS, parent, family, police, friend...)? What history was obtained from this source @ -No Did you review nursing and triage notes (agree or disagree)? Why? @ -I reviewed and agree with nursing and triage notes Were old charts reviewed (outside hosp., previous admission, EMS record, old EK G, old radiological studies, urgent care reports/EKG's, [facility] records)? Report findings @ -No old charts were reviewed Differential Diagnosis? @ -Differential Chest Pain: Stable Angina, Unstable Angina, STEMI, NSTEMI Aortic Dissection, Pneumothorax, Musculoskeletal, Esophageal Spasm GERD, Cholecystitis, Pancreatitis, Zoster, this is not meant to be an all-inclusive list. EKG interpreted by me (3pts min.). @ -As above X-rays interpreted by me (1pt min.). @ -Chest x-ray shows no acute abnormality CT interpreted by me (1pt min.). @ -None done U/S interpreted by me (1pt. min.). @ -None done What testing was considered but not performed or refused? (CT, X-rays, U/S, labs)? Why? @ -None What meds were considered but not given or refused? Why? @ -None Did you discuss the management of the patient with other professionals (professionals i.e. , PA, PASTING INSPECTOR, lab, RT, psych nurse, social economist, radiology physician assistant, teacher, radio division officer, complex case manager)? Give summary @ -I spoke with [facility] hospitalist and he agreed to admit the patient admit the patient wrote admitting orders Was smoking cessation discussed for >3mins.? @ -No Was critical care preformed (if so, how long)? @ -No Were there social determinants of health that impacted care today? How? (Homelessness, low income, unemployed, alcoholism, drug addiction, transportation, low edu. Level, literacy, decrease access to med. care, custodial, rehab)? @ -No Was there de-escalation of care discussed even if they declined (Discuss DNR or withdrawal of care, Hospice)? DNR status @ -No What co-morbidities impacted this encounter? (DM, HTN, Smoking, COPD, CAD, Cancer, CVA, ARF, Chemo, Hep., AIDS, mental health diagnosis, sleep apnea, morbid obesity)? @ -None Was patient admitted / discharged? Hospital course, mention meds given and route, prescriptions, significant lab abnormalities, going to OR and other pertinent info. @ -Patient's lab work came back within normal range. Troponin was normal D- dimer was normal and chest x-ray was normal. Patient was given aspirin Nitropaste. Patient will be admitted to [facility] and cardiology be consulted. Patient still is experiencing some chest pain Undiagnosed new problem with uncertain prognosis? @ -No Drug Therapy requiring intensive monitoring for toxicity (Heparin, Nitro, Insulin, Cardizem)? @ -No Were any procedures done? @ -No Diagnosis/symptom? @ -Chest pain Acute, or Chronic, or Acute on Chronic? @ -Acute Uncomplicated (without systemic symptoms) or Complicated (systemic symptoms)? @ -Complicate Side effects of treatment? @ -No Exacerbation, Progression, or Severe Exacerbation? @ -No Poses a threat to life or bodily function? How? (Chest pain, USA, LA, pneumonia, PE, COPD, DKA, ARF, appy, cholecystitis, CVA, Diverticulitis, Homicidal, Suicidal, threat to staff... and all critical care pts) @ -Yes this could lead to an LA and endorgan dysfunction - Lab Data Result diagrams: 04/06/24 13:52 04/06/24 13:52 Lab Results 04/06/24 04/06/24 04/06/24 Range/Units 13:52 13:52 13:52 WBC 8.6 (3.8-10.6) k/uL RBC 4.58 (4.30-5.90) m/uL Hgb 14.7 (13.0-17.5) gm/dL Hct 42.4 (39.0-53.0) % MCV 92.5 (80.0-100.0) fL MCH 32.1 (25.0-35.0) pg MCHC 34.6 (31.0-37.0) g/dL RDW 12.5 (11.5-15.5) % Plt Count 382 (150-450) k/uL MPV 6.9 Neutrophils % 77 % Lymphocytes % 17 % Monocytes % 4 % Eosinophils % 1 % Basophils % 0 % Neutrophils # 6.7 (1.3-7.7) k/uL Lymphocytes # 1.5 (1.0-4.8) k/uL Monocytes # 0.4 (0-1.0) k/uL Eosinophils # 0.1 (0-0.7) k/uL Basophils # 0.0 (0-0.2) k/uL PT 10.8 (10.0-12.5) sec INR 1.0 (<1.2) APTT 24.6 (22.0-30.0) sec D-Dimer 0.37 (<0.60) mg/L FEU Sodium 140 (137-145) mmol/L Potassium 4.1 (3.5-5.1) mmol/L Chloride 108 H (98-107) mmol/L Carbon Dioxide 23 (22-30) mmol/L Anion Gap 9 mmol/L BUN 16 (9-20) mg/dL Creatinine 0.96 (0.66-1.25) mg/dL Est GFR (CKD-EPI)AfAm >90 (>60 ml/min/1.73 sqM) Est GFR (CKD-EPI)NonAf 87 (>60 ml/min/1.73 sqM) Glucose 107 H (74-99) mg/dL Calcium 9.8 (8.4-10.2) mg/dL Magnesium 2.1 (1.6-2.3) mg/dL Total Bilirubin 0.6 (0.2-1.3) mg/dL AST 18 (17-59) U/L ALT 17 (4-49) U/L Alkaline Phosphatase 62 (38-126) U/L Troponin I (0.000-0.034) ng/mL Total Protein 6.9 (6.3-8.2) g/dL Albumin 4.3 (3.5-5.0) g/dL 04/06/24 Range/Units 13:52 WBC (3.8-10.6) k/uL RBC (4.30-5.90) m/uL Hgb (13.0-17.5) gm/dL Hct (39.0-53.0) % MCV (80.0-100.0) fL MCH (25.0-35.0) pg MCHC (31.0-37.0) g/dL RDW (11.5-15.5) % Plt Count (150-450) k/uL MPV Neutrophils % % Lymphocytes % % Monocytes % % Eosinophils % % Basophils % % Neutrophils # (1.3-7.7) k/uL Lymphocytes # (1.0-4.8) k/uL Monocytes # (0-1.0) k/uL Eosinophils # (0-0.7) k/uL Basophils # (0-0.2) k/uL PT (10.0-12.5) sec INR (<1.2) APTT (22.0-30.0) sec D-Dimer (<0.60) mg/L FEU Sodium (137-145) mmol/L Potassium (3.5-5.1) mmol/L Chloride (98-107) mmol/L Carbon Dioxide (22-30) mmol/L Anion Gap mmol/L BUN (9-20) mg/dL Creatinine (0.66-1.25) mg/dL Est GFR (CKD-EPI)AfAm (>60 ml/min/1.73 sqM) Est GFR (CKD-EPI)NonAf (>60 ml/min/1.73 sqM) Glucose (74-99) mg/dL Calcium (8.4-10.2) mg/dL Magnesium (1.6-2.3) mg/dL Total Bilirubin (0.2-1.3) mg/dL AST (17-59) U/L ALT (4-49) U/L Alkaline Phosphatase (38-126) U/L Troponin I <0.012 (0.000-0.034) ng/mL Total Protein (6.3-8.2) g/dL Albumin (3.5-5.0) g/dL Disposition Clinical Impression: Chest pain Disposition: ADMITTED IP TO THIS HOSP Referrals: Uyen Thomas DO [Primary Care Provider] - 1-2 days Time of Disposition: 14:55
[2024-04-06 14:02] LABS: Basophils % (A) 0 %; Eosinophils # (A) 0.1 k/uL (0-0.7); Eosinophils % (A) 1 %; HCT 42.4 % (39.0-53.0); HGB 14.7 gm/dL (13.0-17.5); Lymphocytes # (A) 1.5 k/uL (1.0-4.8); Lymphocytes % (A) 17 %; MCH 32.1 pg (25.0-35.0); MCHC 34.6 g/dL (31.0-37.0); MCV 92.5 fL (80.0-100.0); Mean Platelet Volume 6.9; Monocytes # (A) 0.4 k/uL (0-1.0); Monocytes % (A) 4 %; Neutrophils # (A) 6.7 k/uL (1.3-7.7); Neutrophils % (A) 77 %; Platelet Count 382 k/uL (150-450); RBC 4.58 m/uL (4.30-5.90); RDW 12.5 % (11.5-15.5); WBC 8.6 k/uL (3.8-10.6)
[2024-04-06] MEDS: ASPIRIN 81 MG PO STA (14:07)
[2024-04-06] MEDS: NITROGLYCERIN OINT 1 INCH/GM PACKET TOPICAL STA (14:07)
--- NOTE | 2024-04-06 14:11 | XR ---
EXAMINATION TYPE: XR chest 2V DATE OF EXAM: 04/06/2024 2:01 PM COMPARISON: Chest radiographs from 02/06/2021 CLINICAL INDICATION: Male, 59 years old with history of Chest Pain; TECHNIQUE: XR chest 2V Frontal and lateral views of the chest. FINDINGS: Lungs/Pleura: There is no evidence of pleural effusion, focal consolidation, or pneumothorax. Pulmonary vascularity: Unremarkable. Heart/mediastinum: Cardiomediastinal silhouette is unremarkable. Musculoskeletal: No acute osseous pathology. IMPRESSION: No acute cardiopulmonary disease/process. [facility], , 04/06/2024 2:08 PM
[2024-04-06 14:13] LABS: ALT 17 U/L (4-49); AST 18 U/L (17-59); African American GFR (CKD) >90 (>60 ml/min/1.73 sqM); Albumin 4.3 g/dL (3.5-5.0); Alkaline Phosphatase 62 U/L (38-126); Anion Gap 9 mmol/L; Blood Urea Nitrogen 16 mg/dL (9-20); Calcium 9.8 mg/dL (8.4-10.2); Carbon Dioxide 23 mmol/L (22-30); Chloride 108 mmol/L (98-107); Glucose 107 mg/dL (74-99); Magnesium 2.1 mg/dL (1.6-2.3); Non-African American GFR(CKD) 87 (>60 ml/min/1.73 sqM); Potassium 4.1 mmol/L (3.5-5.1); Sodium 140 mmol/L (137-145); Total Bilirubin 0.6 mg/dL (0.2-1.3); Total Protein 6.9 g/dL (6.3-8.2)
[2024-04-06 14:30] LABS: Partial Thromboplastin Time 24.6 sec (22.0-30.0); Prothrombin Time 10.8 sec (10.0-12.5)
[2024-04-06] MEDS ORDERED: NITROGLYCERIN SL TABS 0.4 MG TAB SUBLINGUAL PRN (14:56)
[2024-04-06] MEDS: NITROGLYCERIN OINT 1 INCH/GM PACKET TOPICAL SCH (19:47)
[2024-04-06] MEDS: METOPROLOL TARTRATE 12.5 MG TAB PO SCH (21:56)
[2024-04-07] MEDS: ATORVASTATIN 20 MG TAB PO SCH (08:26)
[2024-04-07] MEDS: ASPIRIN 81 MG PO SCH (08:26)
[2024-04-07] MEDS ORDERED: ASPIRIN 325 MG TAB PO SCH (09:00)
--- NOTE | 2024-04-07 09:36 | P.CRDCN ---
History of Present Illness History of present illness: HISTORY OF PRESENT ILLNESS: This is a 59-year-old male with a past medical history significant for coronary artery disease with previous stenting to the LAD, hypertension, and hyperlipide raheel. Patient follows in the office with Dr. Gerard. We have been asked to see the patient in consultation for chest pain. Patient examined at the bedside. Patient states on Friday he started to have pain in his left shoulder blade. He states that it was hard to lay down and get comfortable. 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 He states on Friday he ended up going into work and was there for about 3 hours when the pain in his shoulder blade came back and began to worsen. He states that when he leans forward to the pain increases and radiates into his left arm. He denies having any other symptoms including chest pain, shortness of breath, dizziness, lightheadedness, nausea, or vomiting. This morning he states the pain is worse when he is sitting up and raises his left arm above his head. He also states it is worse if he rolls his shoulders back. The pain is not worse with exertion such as walking. He also reports that the beginning of March he had an upper respiratory infection that lasted for about a week. However he states he has been feeling fine since that time. DIAGNOSTICS: - EKG reveals sinus mechanism with no signs of acute ischemia - Chest xray negative for acute process - Laboratory data: WBC 8.6. Hemoglobin 14.7. Platelet count 382. D-dimer 0.37. Sodium 140. Potassium 4.1. BUN 16. Creatinine 0.96. Troponin negative x 3. - Current home cardiac medications include aspirin 81 mg daily, rosuvastatin 5 mg daily, metoprolol tartrate 12.5 mg twice a day. - Most recent echocardiogram obtained in September 2020 revealed ejection fraction 50 to 55% with trace TR - Cardiac catheterization history: September 2020 with stenting of the mid LAD and balloon angioplasty of the second diagonal branch of the LAD. RCA revealed mild to moderate diffuse disease. Circumflex appeared to be angiographically normal. In the midportion gives rise to large OM branch which seems to be normal and distally bifurcates into PDA and PLV branches which both appear to be angiographically normal. -Patient underwent stress testing in the office and August 2023 which was negative for ischemia REVIEW OF SYSTEMS: At the time of my exam: CONSTITUTIONAL: Denies fever or chills. HEENT: Denies blurred vision, vision changes, or eye pain. Denies hemoptysis CARDIOVASCULAR: Denies chest pain. Denies orthopnea. Denies PND. Denies palpitations RESPIRATORY: Denies shortness of breath. GASTROINTESTINAL: Denies abdominal pain. Denies nausea or vomiting. HEMATOLOGIC: Denies bleeding disorders. GENITOURINARY: Denies any blood in urine. SKIN: Denies pruitis. Denies rash. PHYSICAL EXAM: VITAL SIGNS: Reviewed. GENERAL: Well-developed in no acute distress. HEENT: Head is normocephalic. Pupils are equal, round. Sclerae anicteric. Mucous membranes of the mouth are moist. Neck supple. No JVD or thyromegaly LUNGS: Respirations even and unlabored. Lungs essentially clear to auscultation bilaterally. HEART: Regular rate and rhythm. S1 and S2 heard. ABDOMEN: Soft. Nondistended. Nontender. EXTREMITIES: Normal range of motion. No clubbing or cyanosis. Peripheral pulses intact. No lower extremity edema NEUROLOGIC: Awake and alert. Oriented x 3. ASSESSMENT: Chest pain, appears musculoskeletal, troponin negative x 3, with negative stress test 08/2023 Coronary arteries with previous stenting to the LAD, 2020 Hypertension Hyperlipidemia History of statin intolerance with myalgias PLAN: An acute coronary event has been ruled out Resume home cardiac medications Obtain 2D echo to assess cardiac structure and function Patient may be discharged home this afternoon from a cardiac standpoint pending echo results Patient to follow-up postdischarge with Dr. Gerard Nurse practitioner note has been reviewed by physician. Signing provider agrees with the documented findings, assessment, and plan of care documented by STEAM PIPE FITTER as a scribe. Past Medical History Past Medical History: Myocardial Infarction ([place]), Sleep Apnea/CPAP/BIPAP Additional Past Medical History / Comment(s): C-PAP MACHINE, possible diverticulosis Last Myocardial Infarction Date:: 10/06/2020 History of Any Multi-Drug Resistant Organisms: None Reported Past Surgical History: Heart Catheterization With Stent Additional Past Surgical History / Comment(s): COLONOSCOPY Past Anesthesia/Blood Transfusion Reactions: No Reported Reaction, Motion Sickness Date of Last Stent Placement:: 10/07/2020 Past Psychological History: No Psychological Hx Reported Smoking Status: Never smoker Past Alcohol Use History: Occasional Past Drug Use History: None Reported - Past Family History Father Family Medical History: Cancer Additional Family Medical History / Comment(s): BLADDER CA Medications and Allergies Home Medications Medication Instructions Recorded Confirmed Type Aspirin 81 mg PO DAILY@1030 04/06/24 04/06/24 History Metoprolol Tartrate [Lopressor] 12.5 mg PO BID@1030,2230 04/06/24 04/06/24 History Rosuvastatin Calcium [Crestor] 5 mg PO DAILY@1030 04/06/24 04/06/24 History Allergies Allergy/AdvReac Type Severity Reaction Status Date / Time latex Allergy Unknown Rash/Hives Verified 04/06/24 13:46 Physical Exam Vitals: Vital Signs Temp Pulse Pulse Pulse Resp BP BP 04/07/24 08:00 16 04/07/24 07:00 97.9 F 64 16 04/07/24 02:00 97.9 F 63 17 131/75 04/07/24 00:27 57 L 18 117/68 04/06/24 21:57 66 18 113/72 04/06/24 17:03 67 16 113/80 04/06/24 13:22 98.3 F 93 18 133/86 BP Pulse Ox 04/07/24 08:00 04/07/24 07:00 109/62 98 04/07/24 02:00 98 04/07/24 00:27 95 04/06/24 21:57 97 04/06/24 17:03 97 04/06/24 13:22 99 Intake and Output 04/06/24 04/07/24 04/07/24 22:59 06:59 14:59 Other: # Voids 1 Weight 87.09 kg Results 04/06/24 13:52 04/06/24 13:52 Cardiac Enzymes 04/06/24 04/06/24 04/06/24 Range/Units 13:52 13:52 16:52 AST 18 (17-59) U/L Troponin I <0.012 <0.012 (0.000-0.034) ng/mL 04/06/24 Range/Units 19:33 AST (17-59) U/L Troponin I <0.012 (0.000-0.034) ng/mL Coagulation 04/06/24 Range/Units 13:52 PT 10.8 (10.0-12.5) sec APTT 24.6 (22.0-30.0) sec CBC 04/06/24 Range/Units 13:52 WBC 8.6 (3.8-10.6) k/uL RBC 4.58 (4.30-5.90) m/uL Hgb 14.7 (13.0-17.5) gm/dL Hct 42.4 (39.0-53.0) % Plt Count 382 (150-450) k/uL Comprehensive Metabolic Panel 04/06/24 Range/Units 13:52 Sodium 140 (137-145) mmol/L Potassium 4.1 (3.5-5.1) mmol/L Chloride 108 H (98-107) mmol/L Carbon Dioxide 23 (22-30) mmol/L BUN 16 (9-20) mg/dL Creatinine 0.96 (0.66-1.25) mg/dL Glucose 107 H (74-99) mg/dL Calcium 9.8 (8.4-10.2) mg/dL AST 18 (17-59) U/L ALT 17 (4-49) U/L Alkaline Phosphatase 62 (38-126) U/L Total Protein 6.9 (6.3-8.2) g/dL Albumin 4.3 (3.5-5.0) g/dL Current Medications Generic Name Dose Route Start Last Admin Trade Name Freq PRN Reason Stop Dose Admin Aspirin 81 mg 04/07/24 09:00 04/07/24 08:26 Aspirin 81 Mg PO 81 mg DAILY DARYL Administration Atorvastatin Calcium 20 mg 04/07/24 10:30 04/07/24 08:26 Atorvastatin 20 Mg Tab PO 20 mg DAILY@1030 [facility] Administration Metoprolol Tartrate 12.5 mg 04/06/24 22:30 04/07/24 08:26 Metoprolol Tartrate 12.5 Mg Tab PO 12.5 mg BID@1030,2230 [facility] Administration Nitroglycerin 0.4 mg 04/06/24 14:56 Nitroglycerin Sl Tabs 0.4 Mg Tab SUBLINGUAL Q5M PRN Chest Pain Intake and Output 04/06/24 04/07/24 04/07/24 22:59 06:59 14:59 Other: # Voids 1 Weight 87.09 kg 04/06/24 13:52 04/06/24 13:52
[2024-04-07 10:11] LABS: Chol/HDL Ratio 4.94 Ratio; LDL Cholesterol,Calculated 73.7 mg/dL (0.0-131.0)
[2024-04-07] MEDS ORDERED: ATORVASTATIN 10 MG TAB PO SCH (10:30)
--- NOTE | 2024-04-07 15:00 | P.HPIM ---
History of Present Illness H&P Date: 04/07/24 Chief Complaint: Chest pain Patient is a 59-year-old male with history of AK and sleep apnea presented to the emergency department with chest pain. Patient does have a history of heart cath with stent placed in the middle LAD in 2020. Patient reports that on Friday he started feeling a sharp pain underneath his left shoulder blade but slowly moved to the left side of his chest. He said the pain got worse if he leans forward and it would improve if he leans backward. He characterizes the pain as intermittent, sharp stabbing, and will last for few minutes. He did re port that the pain seems to go better if he lays on his side. He reported the chest pain to be an 8 out of 10 in severity when he initially came into the emergency department. He said it felt similar to his previous heart attack that he had in 2020. Patient reported that the Nitro-Bid ointment did not improve his chest pain. He feels like the chest pain would get better when he presses on his chest cavity. Patient denies fever, chills, shortness of breath, nausea, vomiting, belly pain, dysuria, diarrhea or constipation. ED documentation reviewed. In the ED patient was treated with aspirin 324 mg x 1, Nitro-Bid ointment x 1 Vitals on admission temperature 97.9, pulse rate 64, respiratory rate 16, blood pressure 109/62, O2 sat 98% on room air EKG independently interpreted as sinus rhythm with ventricular rate of 79 bpm, QTc interval 408 ms CXR shows no acute cardiopulmonary disease/process Labs on admission show WBC 8.6, hemoglobin 14.7, hematocrit 42.4, platelet 382, D-dimer 0.37, sodium 140, potassium 4.1, chloride 108, carbon dioxide 23, BUN 16, creatinine 0.96, glucose 107, magnesium 2.1, troponin less than 0.012 x 3 Review of systems: Pertinent positives and negatives as discussed in HPI, a complete review of systems was performed and all other systems are negative. PMH:history of AK and sleep apnea PSH: Heart cath with stent in the mid LAD in 2020 FMH: Father had a history of bladder cancer Allergies: Latex Social history: Tobacco: Never smoker Alcohol: Occasional Recreational drugs: None reported Travel: No travel history Sick contacts: No sick contacts Physical examination: Vital signs reviewed General: nontoxic, no distress, appears at stated age Derm: warm, dry, intact Head: atraumatic, normocephalic, symmetric Eyes: EOMI, anicteric sclera Mouth: no lip lesion, mucus membranes moist Cardiovascular: S1 S2 reg, no murmur Lungs: CTA bilateral, no rhonchi, no rales, no accessory muscle use Abdominal: soft, non-tender to palpation Extremities: No cyanosis, clubbing, or pedal edema. Neuro: Alert, Gross neurological examination did not reveal any focal deficits. Psych: well appearing, appropriate affect Assessment/Plan: Patient is a 59-year-old male with history of AK and sleep apnea presented to the emergency department with chest pain. Patient will be admitted to internal medicine service. Active: #. Chest pain with atypical features, rule out ACS #. Pericarditis Cardiology consulted by ED Troponin less than 0.012 x 3 Continued cardiac monitoring Order echocardiogram, pending results, if normal results patient can be discharged and follow-up with PCP and cardiology outpatient. Order lipid panel Continue aspirin 81 mg daily Continue Lipitor 20 mg daily Continue metoprolol tartrate 12.5 mg twice daily Chronic: #. Hyperlipidemia #. Hypertension Restart home metoprolol tartrate 12.5 mg twice daily Lipitor 20 mg daily Aspirin 81 mg daily F: No restrictions E: Replete as needed N: Heart healthy diet A: Wheelchair DVT prophylaxis: Lovenox 40 mg subcu daily The patient is admitted with an anticipated last than 2 midnight stay for evaluation of chest pain with atypical features CODE STATUS: Full code Discussed with: Patient Anticipated discharge place: Home Past Medical History Past Medical History: Myocardial Infarction ([place]), Sleep Apnea/CPAP/BIPAP Additional Past Medical History / Comment(s): C-PAP MACHINE, possible diverticulosis Last Myocardial Infarction Date:: 10/06/2020 History of Any Multi-Drug Resistant Organisms: None Reported Past Surgical History: Heart Catheterization With Stent Additional Past Surgical History / Comment(s): COLONOSCOPY Past Anesthesia/Blood Transfusion Reactions: No Reported Reaction, Motion Si ckness Date of Last Stent Placement:: 10/07/2020 Past Psychological History: No Psychological Hx Reported Smoking Status: Never smoker Past Alcohol Use History: Occasional Past Drug Use History: None Reported - Past Family History Father Family Medical History: Cancer Additional Family Medical History / Comment(s): BLADDER CA Medications and Allergies Home Medications Medication Instructions Recorded Confirmed Type Aspirin 81 mg PO DAILY@1030 04/06/24 04/06/24 History Metoprolol Tartrate [Lopressor] 12.5 mg PO BID@1030,2230 04/06/24 04/06/24 History Rosuvastatin Calcium [Crestor] 5 mg PO DAILY@1030 04/06/24 04/06/24 History Allergies Allergy/AdvReac Type Severity Reaction Status Date / Time latex Allergy Unknown Rash/Hives Verified 04/06/24 13:46 Physical Exam Vitals: Vital Signs Temp Pulse Pulse Pulse Resp BP BP 04/07/24 07:00 97.9 F 64 16 04/07/24 02:00 97.9 F 63 17 131/75 04/07/24 00:27 57 L 18 117/68 04/06/24 21:57 66 18 113/72 04/06/24 17:03 67 16 113/80 04/06/24 13:22 98.3 F 93 18 133/86 BP Pulse Ox 04/07/24 07:00 109/62 98 04/07/24 02:00 98 04/07/24 00:27 95 04/06/24 21:57 97 04/06/24 17:03 97 04/06/24 13:22 99 Intake and Output 04/06/24 04/07/24 04/07/24 22:59 06:59 14:59 Other: # Voids 1 Weight 87.09 kg Results CBC & Chem 7: 04/06/24 13:52 04/06/24 13:52 Labs: Abnormal Lab Results - Last 24 Hours (Table) 04/06/24 Range/Units 13:52 Chloride 108 H (98-107) mmol/L Glucose 107 H (74-99) mg/dL Thrombosis Risk Factor Assmnt - Choose All That Apply Any of the Below Risk Factors Present?: Yes Each Factor Represents 1 point: Age 41-60 years, Obesity (BMI >25) Other Risk Factors: No Other congenital or acquired thrombophilia - If yes, enter type in comment: No Thrombosis Risk Factor Assessment Total Risk Factor Score: 2 Thrombosis Risk Factor Assessment Level: Low Risk
[2024-04-07 15:34] VITALS: BP 116/66; PULSE 67; RESP 18; TEMP 98.5
--- NOTE | 2024-04-07 16:32 | P.DS ---
Providers Date of admission: 04/06/24 14:57 Expected date of discharge: 04/07/24 Attending physician: Rojas Biggs Consults: 04/06/24 14:56 Consult Physician Urgent Consulting Provider: [facility] Reason/Comments: Chest pain Do you want consulting provider notified?: Yes Primary care physician: Uyen Garcesarlo [facility] Course: Hospital course: Patient is a 59-year-old male with a history of [place] sleep apnea presented to the ED with chest pain. He does have a history of heart cath with stent placed in the middle LAD in 2020. He reports that on Friday he started feeling a sharp pain underneath his left shoulder blade was slowly moved to the left side of his chest. He said the pain got worse if he leans forward and it would improve if he leans backward. He characterizes the pain as intermittent, sharp stabbing, and will last for few minutes. He reported the chest pain to be an 8 out of 10 in severity when he initially came into the emergency department. He said it felt similar to his previous heart attack that he had in 2020. Patient reported that the Nitro-Bid ointment did not improve his chest pain. He feels like the chest pain would get better when he presses on his chest cavity. Patient denies fever, chills, shortness of breath, nausea, vomiting, belly pain, dysuria, diarrhea or constipation. EKG in the ED showed sinus rhythm with a ventricular rate of 79 bpm, QTc interval 408 ms. Chest x-ray shows no acute cardiopulmonary disease/process. Troponin was less than 0.012 for 3 separate measurements. D-dimer was within normal limits. Cardiology was consulted. Echocardiogram was ordered and has been taken however results are not available as of yet. Patient was seen at bedside. Reports no complaints at this time and chest pain has resolved. He is stable to be discharged back home. Patient is encouraged to follow-up with Dr. Gerard cardiology in 1 week and PCP in 1 to 3 days after discharge. No new medications were added to his home medication list. Physical examination at discharge: GENERAL: This is a 59-year-old in no apparent distress at the time of examination. Pleasant and cooperative. HEENT: Head is atraumatic, normocephalic. Pupils are equal, round, and reactive to light. Sclerae anicteric. Conjunctivae are clear. Mucus membranes of the mouth are moist. Neck is supple. RESPIRATORY: Clear to auscultation. No wheezes, rales, or rhonchi. No use of accessory muscles. Patient maintaining oxygen saturation greater than 92%. No chest wall tenderness is noted on palpation or with deep breathing. CARDIOVASCULAR: Regular rate and rhythm. S1 and S2 noted. No systolic or diastolic murmur auscultated. No JVD noted. No S3 or S4 noted. GASTROINTESTINAL: No distention noted. Abdomen soft and round. Normal active bowel sounds auscultated x 4 quadrants. No pain or tenderness noted upon palpation. INTEGUMENTARY: No cyanosis. No jaundice. No rashes noted. No cellulitis noted. EXTREMITIES: 2+ peripheral pulses. No evidence of peripheral edema. No calf tenderness noted. NEUROLOGIC: Cranial nerves II-XII intact. PSYCHIATRIC: Awake, alert, and oriented X 3. Appropriate affect. Intact judgemen t and insight. Patient Condition at Discharge: Stable Plan - Discharge Summary Discharge Rx Participant: No New Discharge Prescriptions: New Aspirin 81 mg PO DAILY 30 Days #30 tab Continue Metoprolol Tartrate [Lopressor] 12.5 mg PO BID@1030,2230 Rosuvastatin Calcium [Crestor] 5 mg PO DAILY@1030 Discontinued Aspirin 81 mg PO DAILY@1030 Discharge Medication List Metoprolol Tartrate [Lopressor] 12.5 mg PO BID@1030,2230 04/06/24 [History] Rosuvastatin Calcium [Crestor] 5 mg PO DAILY@1030 04/06/24 [History] Aspirin 81 mg PO DAILY 30 Days #30 tab 04/07/24 [Rx] Follow up Appointment(s)/Referral(s): Uyen Thomas DO [Primary Care Provider] - 1-2 days Misbah Gerard MD [STAFF PHYSICIAN] - 1 Week Discharge Disposition: HOME SELF-CARE
[2024-04-08] MEDS ORDERED: ENOXAPARIN 40 MG/0.4 ML SYRINGE SQ SCH (09:00)
--- NOTE | 2024-04-08 11:22 | CA ---
Transthoracic Echo Report Name: Juan A Pleitez Age: 59 Gender: M : 1965 Exam Date: 04/07/2024 11:51 Exam Location: [facility] Ht (in): 69 Wt (lb): 192 Ordering Physician: Kristine Barriga Attending/Referring Phys: [id number], Nithya Associate Loan Officer Yolie Alcantara RDCS Procedure CPT: Indications: LV function, chest pain, hx of CAD Cardiac Hx: Technical Quality: Fair Contrast 1: Total Dose (mL): Contrast 2: Total Dose (mL): MEASUREMENTS (Male / Female) Normal Values 2D ECHO LV Diastolic Diameter PLAX 4.8 cm 4.2 - 5.9 / 3.9 - 5.3 cm LV Systolic Diameter PLAX 3.1 cm IVS Diastolic Thickness 0.9 cm 0.6 - 1.0 / 0.6 - 0.9 cm LVPW Diastolic Thickness 0.9 cm 0.6 - 1.0 / 0.6 - 0.9 cm LV Relative Wall Thickness 0.4 LVOT Diameter 2.4 cm Aortic Root Diameter 3.4 cm LV Diastolic Volume MOD BP 114.7 cm??? 67 - 155 / 56 - 104 cm??? LV Systolic Volume MOD BP 50.4 cm??? 22 - 58 / 19 - 49 cm??? LV Ejection Fraction MOD BP 56.0 % >= 55 % LV Cardiac Index MOD BP 1978.1 cm???/min???m??? LV Diastolic Volume MOD 4C 111.1 cm??? LV Systolic Volume MOD 4C 49.5 cm??? LV Ejection Fraction MOD 4C 55.4 % LV Cardiac Index MOD 4C 1896.4 cm???/min???m??? LV Diastolic Length 4C 8.3 cm LV Systolic Length 4C 7.5 cm LV Diastolic Volume MOD 2C 117.4 cm??? LV Systolic Volume MOD 2C 50.7 cm??? LV Ejection Fraction MOD 2C 56.8 % LV Cardiac Index MOD 2C 2052.0 cm???/min???m??? LV Diastolic Length 2C 8.4 cm LV Systolic Length 2C 7.3 cm Ascending Aorta Diameter 3.5 cm DOPPLER AV Peak Velocity 113.1 cm/s AV Peak Gradient 5.1 mmHg AV Mean Velocity 80.4 cm/s AV Mean Gradient 2.9 mmHg AV Velocity Time Integral 23.2 cm LVOT Peak Velocity 96.0 cm/s LVOT Peak Gradient 3.7 mmHg LVOT Velocity Time Integral 20.2 cm LVOT Stroke Volume 92.2 cm??? LVOT Stroke Volume Index 45.4 ml/m??? LVOT Cardiac Index 2838.6 cm???/min???m??? AV Area Cont Eq vti 4.0 cm??? AV Area Cont Eq pk 3.9 cm??? Mitral E Point Velocity 53.5 cm/s Mitral A Point Velocity 42.5 cm/s Mitral E to A Ratio 1.3 MV Deceleration Time 207.8 ms MV E' Velocity 8.7 cm/s Mitral E to MV E' Ratio 6.2 TR Peak Velocity 194.0 cm/s TR Peak Gradient 15.0 mmHg PV Peak Velocity 99.1 cm/s PV Peak Gradient 3.9 mmHg FINDINGS Left Ventricle Left ventricular ejection fraction is estimated at 55-60 %. Left ventricular cavity size normal. Left ventricular wall thickness normal. Normal left ventricular wall motion. Right Ventricle Unable to estimate the right ventricular systolic pressure. Right Atrium Normal right atrial size. No right atrial thrombus or mass seen. Left Atrium Normal left atrial size. No left atrial thrombus or mass present. Mitral Valve Structurally normal mitral valve. No mitral stenosis, or prolapse.trace to mild mitral regurgitation. Aortic Valve Trileaflet aortic valve. No aortic valve stenosis or regurgitation. Tricuspid Valve Structurally normal tricuspid valve. No tricuspid stenosis, or prolapse.trace to mild tricuspid regurgitation. Pulmonic Valve Pulmonic valve not well visualized. Pericardium No pericardial effusion. Aorta Normal size aortic root and proximal ascending aorta. CONCLUSIONS 1. Normal left ventricular size and systolic function 2. Trace to mild mitral and tricuspid regurgitation Previewed by: Dr. Akhil Rush MD (Electronically Signed) Final Date: 08 April 2024 11:20
== END 2024-04-07 17:17 | disposition home or self-care (01) ==
LOC: EC 13:20 → 6NMEDSUR 14:57
PROVIDERS: ADMIT Hospitalist; ATTEND Hospitalist
DX: R07.89 Other chest pain (principal); I31.9 Disease of pericardium, unspecified; M79.602 Pain in left arm; E78.5 Hyperlipidemia, unspecified; I10 Essential (primary) hypertension; G47.30 Sleep apnea, unspecified; E66.9 Obesity, unspecified; Z68.28 Body mass index [BMI] 28.0-28.9, adult; I25.10 Atherosclerotic heart disease of native coronary artery without angina pectoris; Z79.82 Long term (current) use of aspirin; Z79.899 Other long term (current) drug therapy; Z91.040 Latex allergy status; Z88.8 Allergy status to other drugs, medicaments and biological substances; I25.2 Old myocardial infarction; Z95.5 Presence of coronary angioplasty implant and graft
CPT/HCPCS: 99285; 36415; 93005; 93306; 85379; 80061; 80053; 83735; 84484; 85025; 85610; 85730; 71046; G0378 ×2

== ENCOUNTER → 2024-06-25 | Outpatient (CLI) | payer BC ==
[2024-06-25 19:17] LABS: ALT 18 U/L (10-49); AST 19 U/L (14-35); Chol/HDL Ratio 5.24 Ratio; LDL Cholesterol,Calculated 117.5 mg/dL (0.0-131.0); VLDL Calculation 13.62 mg/dL (5.00-40.00)
== END | disposition home or self-care (01) ==
LOC: LABWHC1 12:30
PROVIDERS: ATTEND Internal Medicine Interventional Cardiology
DX: E78.2 Mixed hyperlipidemia (principal)
CPT/HCPCS: 36415; 80061; 84450; 84460